=== PATIENT | female | born 1965 | race Caucasian/White ===

== ENCOUNTER → 2016-05-03 | Outpatient (CLI) | payer OTHER ==
[~2016-05-03] MED LIST: ANT25 PO; FEXO1TAB46 PO; NUTRTAB40 PO; VALA500T39 PO
[2016-05-03 10:47] LABS: HEMATOCRIT 40.8 % (37-47); MEAN CELL VOLUME 93.2 fL (80-100); MEAN CORPUSCULAR HEMOGLOBIN 32.4 pg (25-34); MEAN CORPUSCULAR HGB CONC 34.8 g/dl (32-36); MEAN PLATELET VOLUME 10.2 fL (7.4-10.4); PLATELET COUNT 169 K/uL (130-400); RED BLOOD COUNT 4.38 M/uL (4.2-5.4); WHITE BLOOD COUNT 3.42 K/uL (4.8-10.8)
[2016-05-03 11:17] LABS: BLOOD UREA NITROGEN 10 mg/dl (7-18); BUN/CREATININE RATIO 11.3 (10-20); CALCIUM 8.7 mg/dl (8.5-10.1); CARBON DIOXIDE 29 mmol/L (21-32); CHLORIDE 107 mmol/L (98-107); CREATININE 0.86 mg/dl (0.60-1.20); GLUCOSE 75 mg/dl (70-99); SODIUM 142 mmol/L (136-145)
[2016-05-03 11:27] LABS: ESTIMATED AVERAGE GLUCOSE 88 mg/dl; HA1C FLAG Normal (Normal)
== END | disposition home or self-care (01) ==
LOC: C.LABBC 08:17
PROVIDERS: ATTEND Family Medicine
DX: Z00.00 Encounter for general adult medical examination without abnormal findings (principal); R76.8 Other specified abnormal immunological findings in serum; Q79.6 Ehlers-Danlos syndromes; H81.09 Meniere's disease, unspecified ear; Z13.1 Encounter for screening for diabetes mellitus

== ENCOUNTER → 2016-06-21 | Outpatient (CLI) | payer OTHER ==
--- NOTE | 2016-06-21 09:40 | DIAGNOSTIC IMAGING REPORT ---
CERVICAL SPINE 5 VIEWS HISTORY: Neck pain. COMPARISON: None. FINDINGS: The cervical spine is visualized from C1 through the superior endplate of T1. There is no fracture. No subluxation. Straightening of the cervical spine. Mild to moderate disc space narrowing at C5-C6. Remaining disc spaces are preserved. Prevertebral soft tissues and the atlantodens interval are intact. IMPRESSION: 1. Mild to moderate disc space narrowing at C5-C6. 2. Straightening of the cervical spine. Electronically signed by: Yann Saucedo M.D. 06/21/2016 9:38 AM Dictated Date/Time: 06/21/2016 9:37 AM
== END | disposition home or self-care (01) ==
LOC: C.RADBC 08:58
PROVIDERS: ATTEND Chiropractor Orthopedic
DX: H81.09 Meniere's disease, unspecified ear (principal); M19.90 Unspecified osteoarthritis, unspecified site

== ENCOUNTER → 2016-11-10 | Outpatient (CLI) | payer OTHER ==
--- NOTE | 2016-11-10 15:32 | MAMMOGRAPHY REPORT ---
BILATERAL DIGITAL SCREENING MAMMOGRAM TOMOSYNTHESIS WITH CAD: 11/10/2016 CLINICAL HISTORY: Routine screening. Patient has no complaints. TECHNIQUE: Breast tomosynthesis in addition to standard 2D mammography was performed. Current study was also evaluated with a Computer Aided Detection (CAD) system. COMPARISON: Comparison is made to exams dated: 11/05/2015 mammogram, 11/03/2014 mammogram, 04/09/2014 u ltrasound, 09/09/2013 mammogram, 08/30/2012 mammogram, and 08/28/2011 mammogram - [facility] enter. BREAST COMPOSITION: The tissue of both breasts is heterogeneously dense, which may obscure small mas ses. FINDINGS: No suspicious masses, calcifications, or areas of architectural distortion are noted in ei ther breast. There has been no significant interval change compared to prior exams. IMPRESSION: ACR BI-RADS CATEGORY 1: NEGATIVE There is no mammographic evidence of malignancy. A 1 year screening mammogram is recommended. The pa tient will receive written notification of the results. Approximately 10% of breast cancers are not detected with mammography. A negative mammographic report should not delay biopsy if a clinically suggestive mass is present. Gina Ayala M.D. ah/:11/10/2016 12:20:49 [employer] Developer: Yvette OTTO(R)(M), [facility] letter sent: Normal 1/2 BI-RADS Code: ACR BI-RADS Category 1: Negative
== END | disposition home or self-care (01) ==
LOC: C.MAMM 09:02
PROVIDERS: ATTEND Obstetrics & Gynecology
DX: Z12.31 Encounter for screening mammogram for malignant neoplasm of breast (principal)

== ENCOUNTER → 2016-11-20 | Outpatient (CLI) | payer OTHER ==
--- NOTE | 2016-11-20 11:45 | DIAGNOSTIC IMAGING REPORT ---
PELVIC COMPLETE NON OB, TRANSVAG-FEMALE PELVIS CLINICAL HISTORY: 51 years-old Female presenting with POST MENOPAUSAL BLEEDING, last menstrual period 2 years ago, no pelvic pain. TECHNIQUE: Real-time grayscale and color and spectral Doppler ultrasound imaging of the pelvis was performed first using a transabdominal probe and subsequently transvaginal for better characterization. COMPARISON: 07/01/[address] from 2014. FINDINGS: Uterus: Small hypoechoic subcentimeter round region along the posterior wall near the fundus subjacent to the endometrium may represent an intramural fibroid or cystic change. Anteverted. The uterus measures 8.6 x 3.9 x 4.0 cm. Endometrial stripe measures 4-5 mm in thickness. Endometrium normal-appearing. Cervix contains nabothian cysts. Right adnexa: Right ovary contains a 1.2 cm simple appearing cyst. This is almost certainly benign. Right ovary measures 1.7 x 2.5 x 2.7 cm. Normal color Doppler flow and arterial and venous waveforms within the ovarian parenchyma. Left adnexa: Left ovary may contain an exophytic subcentimeter simple appearing cyst. Left ovary measures 2.3 x 1.4 x 1.7 cm. Normal color Doppler flow and arterial and venous waveforms within the ovarian parenchyma. Other: No free fluid. IMPRESSION: 1. Two small simple appearing cysts in the ovaries, the largest measuring 1.2 cm. These are almost certainly benign. A one-year follow-up ultrasound could be considered as clinically indicated. 2. Endometrial thickness up to 5 mm in a postmenopausal female with vaginal bleeding would be considered the upper limit of normal. The endometrium would be better evaluated on contrast-enhanced pelvic MRI if clinically indicated. Electronically signed by: Asad Walsh M.D. 11/20/2016 11:43 AM Dictated Date/Time: 11/20/2016 11:36 AM
== END | disposition home or self-care (01) ==
LOC: C.ULTRBC 10:11
PROVIDERS: ATTEND Obstetrics & Gynecology
DX: N95.0 Postmenopausal bleeding (principal); N83.201 Unspecified ovarian cyst, right side; N83.202 Unspecified ovarian cyst, left side

== ENCOUNTER → 2016-11-21 | Outpatient (CLI) | payer OTHER | END | disposition home or self-care (01) | LOC: C.LABBC 10:52 | PROVIDERS: ATTEND Obstetrics & Gynecology | DX: N95.0 Postmenopausal bleeding (principal) ==

== ENCOUNTER → 2016-12-04 | Outpatient (CLI) | payer OTHER | END | disposition home or self-care (01) | LOC: C.PATHSPEC 17:55 | PROVIDERS: ATTEND Obstetrics & Gynecology | DX: N95.0 Postmenopausal bleeding (principal) ==

== ENCOUNTER → 2017-03-20 | Outpatient (CLI) | payer OTHER | END | disposition home or self-care (01) | LOC: C.PAPS 16:07 | PROVIDERS: ATTEND Obstetrics & Gynecology | DX: Z01.419 Encounter for gynecological examination (general) (routine) without abnormal findings (principal) ==